=== PATIENT | female | born 1990 | race Caucasian/White ===

== ENCOUNTER 2018-04-16 22:32 | Emergency (ER) | payer OTHER ==
[~2018-04-16] VITALS: Ht 170.2 cm; Wt 95.3 kg
[2018-04-16] MEDS ORDERED: HYDR-971 PO (23:54)
[2018-04-16] MEDS ORDERED: PRED50TA PO (23:54)
[2018-04-17] MEDS ORDERED: predniSONE 20 MG TABLET PO ONE
[2018-04-17] MEDS ORDERED: HYDROcodone/APAP 5/325MG 1 TAB TABLET PO ONE
--- NOTE | 2018-04-17 | PHYS DOC ---
Adult General Chief Complaint Chief Complaint: BACK PAIN OR INJURY [facility] HPI 28-year-old female presents with right lower back pain. The patient bent over to get something out of the freezer yesterday and then when she stood up she had sudden and intense pain in her right lower back. Since that time, she has had cramping pain in that same location. Today, it seems to have gotten worse throughout the day. She is given had some numbness radiating down the back of her leg to her foot. It is now difficult for her to stand up straight due to discomfort. She came to the ED because she was unable to sleep. Patient denies any history of back problems. She has never had any trauma or surgery. She denies any other overuse injury. She denies fever or chills. She had a baby 1 year ago. Review of Systems Review of Systems Constitutional: Denies fever or chills [] Eyes: Denies change in visual acuity, redness, or eye pain [] HENT: Denies nasal congestion or sore throat [] Respiratory: Denies cough or shortness of breath [] Cardiovascular: No additional information not addressed in HPI [] GI: Denies abdominal pain, nausea, vomiting, bloody stools or diarrhea [] : Denies dysuria or hematuria [] Musculoskeletal: Low back pain[] Integument: Denies rash or skin lesions [] Neurologic: Denies headache, focal weakness or sensory changes [] Endocrine: Denies polyuria or polydipsia [] All other systems were reviewed and found to be within normal limits, except as documented in this note. Current Medications Current Medications Current Medications Medications (Trade) Dose Ordered Sig/[facility] Start Time Stop Time Status Last Admin Dose Admin Acetaminophen/ Hydrocodone Bitart (Lortab 5/325) 1 tab 1X ONCE 04/17/18 00:00 04/17/18 00:01 Prednisone (Prednisone) 60 mg 1X ONCE 04/17/18 00:00 04/17/18 00:01 Allergies Allergies Allergies Coded Allergies Type Severity Reaction Last Updated Verified No Known Drug Allergies 04/14/16 No Physical Exam Physical Exam Constitutional: Well developed, well nourished, no acute distress, non-toxic appearance. [] HENT: Normocephalic, atraumatic, bilateral external ears normal, oropharynx moist, no oral exudates, nose normal. [] Eyes: PERRLA, EOMI, conjunctiva normal, no discharge. [] Neck: Normal range of motion, no tenderness, supple, no stridor. [] Cardiovascular:Heart rate regular rhythm, no murmur [] Lungs & Thorax: Bilateral breath sounds clear to auscultation [] Abdomen: Bowel sounds normal, soft, no tenderness, no masses, no pulsatile masses. [] Skin: Warm, dry, no erythema, no rash. [] Back: Tenderness over right sacroiliac region, patient unable to stand up straight due to pain.[] Extremities: No tenderness, no cyanosis, no clubbing, ROM intact, no edema. [] Neurologic: Alert and oriented X 3, normal motor function, normal sensory function, no focal deficits noted. [] Psychologic: Affect normal, judgement normal, mood normal. [] EKG EKG [] Radiology/Procedures Radiology/Procedures [] Course & Med Decision Making Course & Med Decision Making Pertinent Labs and Imaging studies reviewed. (See chart for details) The patient has tenderness over the right sacroiliac joint. Given the mechanism , this is likely the cause of her pain. Imaging is not necessary. We'll give the patient 1 [place] 5/325 in the ED as well as 60 mg of prednisone. I will discharge her on 50 mg of prednisone for 5 more days as well as 10 [place] 5/325 for breakthrough pain. The patient already has Flexeril 10 mg at home and she will take these 3 times a day for the next several days. If her condition does not rapidly improve by Thursday, she will contact her PCP and consider physical therapy. She is stable for discharge at this time. [] Dragon Disclaimer Dragon Disclaimer This electronic medical record was generated, in whole or in part, using a voice recognition dictation system. Departure Departure: Impression: Primary Impression: Sacroiliitis Disposition: HOME, SELF-CARE Condition: STABLE Patient Instructions: Sacroiliac Joint Dysfunction Scripts Prednisone (PREDNISONE) 50 Mg Tablet 1 TAB PO DAILY, #5 TAB Prov: MIKEL ROMERO DO 04/16/18 Hydrocodone Bit/Acetaminophen (NORCO 5-325 TABLET) 1 Each Tablet 1 TAB PO PRN Q6HRS PRN for PAIN, #10 TAB 0 Refills Prov: MIKEL ROMERO DO 04/16/18 MIKEL ROMERO DO Apr 17, 2018 00:00
[2018-04-17 00:15] VITALS: BP 128/74
== END 2018-04-17 00:20 | disposition home or self-care (01) ==
LOC: ER 22:32
DX: M46.1 Sacroiliitis, not elsewhere classified (principal)
CPT/HCPCS: 99283; J7512

== ENCOUNTER → 2021-05-23 | Day surgery (SDC) | payer BC, OTHER ==
[~2021-05-23] MED LIST: CYCL-331 PO; HYDR-3070 PO; HYDR-3165 PO; PRED50TA PO
[2021-05-23 10:34] VITALS: BP 118/79
== END | disposition home or self-care (01) ==
LOC: SURG 10:23
PROVIDERS: ATTEND Anesthesiology
DX: M51.26 Other intervertebral disc displacement, lumbar region (principal); M79.2 Neuralgia and neuritis, unspecified; G43.909 Migraine, unspecified, not intractable, without status migrainosus; Z98.890 Other specified postprocedural states; Z79.899 Other long term (current) drug therapy
CPT/HCPCS: 99204; G0463

== ENCOUNTER → 2021-06-05 | Day surgery (SDC) | payer BC ==
[~2021-06-05] MED LIST changes: +0.9 % SODIUM CHLORIDE 10 ML VIAL. ONE; +DEXAMETHASONE SOD PHOS 10 MG/ML VIAL. ONE; +IOHEXOL 300 MG/ML 50 ML VIAL. ONE
[2021-06-05 15:16] VITALS: BP 129/85
== END | disposition home or self-care (01) ==
LOC: SURG 14:44
PROVIDERS: ATTEND Anesthesiology
DX: M54.16 Radiculopathy, lumbar region (principal)
CPT/HCPCS: 62323; J1100; Q9967

== ENCOUNTER → 2021-07-18 | Day surgery (SDC) | payer BC ==
[~2021-07-18] MED LIST changes: +BUPIVACAINE MPF 0.25% 10 ML VIAL. ONE; -CYCL-331 PO; +CYCL10TA19 PO; +LIDOCAINE 1% PF 30 ML VIAL. ONE
[2021-07-18 14:34] VITALS: BP 135/86
== END | disposition home or self-care (01) ==
LOC: SURG 13:01
PROVIDERS: ATTEND Anesthesiology
DX: M54.16 Radiculopathy, lumbar region (principal); G89.29 Other chronic pain; G43.909 Migraine, unspecified, not intractable, without status migrainosus; F17.210 Nicotine dependence, cigarettes, uncomplicated; Z98.890 Other specified postprocedural states; Z79.899 Other long term (current) drug therapy
CPT/HCPCS: 62323; A4209; A4657; A4930; J1100; Q9967; J3490